=== PATIENT | male | born 2000 | race Caucasian/White ===

== ENCOUNTER 2024-06-18 02:15 | Day surgery (SDC) | payer OTHER, SELFPAY ==
[2024-04-18 14:40] VITALS: BMI 33.7
--- OUTSIDE RECORDS SUMMARY | 2024-04-30 01:14 | XMS_ITS | Data Portability ---
[facility] Organization [facility] [address] [place] [address] Care Team Providers Care Shirt Folder Name Role Phone MARIEL ESPAÑA Primary Care Provider Unavailab le Assessment No assessment recorded. Plan of Treatment Reminders Order Date Submit Date Provider Last Modified By Organization Details Last Modified Time Details Appointments ANY 15 2024 02:00P M ABRAHAM Raymundo Not available Not available Not available Lab TSH + free T4, serum 2024 025 [facility], [address] [place] [address], [id number], 04/23/2024 15:20:09 lipid panel, serum 2024 025 [facility]arterma [facility], [address] [place] [address], [id number], 04/23/2024 15:20:09 CMP, serum or plasma 2024 025 tcarterma [facility], [address] [place] [address], [id number], 04/23/2024 15:20:09 vitamin B12 + folate, serum or blood 2024 025 [facility]arterma [facility], [address] [place] [address], [id number], 04/23/2024 15:20:09 CBC w/ auto diff 2024 025 [facility]carterma [facility], [address] [place] [address], [id number], 04/23/2024 15:20:08 iron + TIBC + ferritin, serum 2024 025 [facility]arterma [facility], [address] [facility] [address], [place], [address], 04/23/2024 15:20:09 HbA1c (hemoglob in A1c), blood 2024 025 [facility]arterma [facility], [address] [facility] [address], [place], [address], 04/23/2024 15:20:09 Referral None recorded. Procedures diagnosti c colonosco py (PROC) - Soonest possible. new young patient, onset occult blood in stool August 2023. [address] [facility], [address], [address], [place], [address], 03/26/2024 15:15:59 Surgeries None recorded. Imaging None recorded. Medication Orders [facility]ra m 20 mg [facility], [address], [place], [address], 02/20/2024 11:12:57 Patient TargetsNo targets recorded. Patient Instructions Encounter Date Encounter Id Patient Instructions Last Modified By Organization Details Last Modified Time 02/20/2024 [id number] A healthy lifestyle: care instructions [email or web address] Not available 02/20/2024 11:12:48 Reason for Referral None Reported. Problems Name Problem SNOMED Code Status Onset Date Resolution Date Notes Provider Name and Address Organization Details Recorded Time Body mass index 30+ - obesity 130053886 Active 2024 Michael Celis MA null, [place] - [facility] 10:49:18 Obesity 128590301 Active 2024 ABRAHAM Raymundo Attn: Stephanie richards,[address] [facility], [place], [address] , [place] - [facility] 23:41:31 Generalized anxiety disorder 33804971 Active 2024 ABRAHAM Raymundo Attn: Accountderic g,[address] [facility], [place], [address], [facility] 5 23:41:52 Long-term drug therapy Active 2024 ABRAHAM Raymundo Attn: Accountderic g,[address] [facility], [place], [address], [facility] 5 23:41:53 Positive screening for depression on PHQ-9 (Patient Health Questionnai re 9) 2009787825528 00 Active 2024 ABRAHAM Raymundo Attn: Accountderic g,[address] [facility], [place], [address], [facility] 23:42:17 Problem Notes None recorded. Medical Equipment None Reported. Allergies Allergen ID Allergen Name Allergen Category Reaction Reaction Severity Criticality Documentation Date Start Date Code Code System Note Provider Name and Address Organization Details Recorded Time 884150 lactose food,medi cation Not available Not available Not available 02/20/2024 6211 RxNorm Not Available Not Available Not Available Medications Name Sig Start Date Stop Date Status Note LastModified by Organization Details LastModified Time citalopram 20 mg tablet TAKE 1 TABLET BY MOUTH ONCE DAILY active Not Available Not Available No t Available Vitals Date Recorded Body weight Body mass index (BMI) Body height Oxygen saturation Oxygen saturation in Arterial blood by Pulse oximetry Heart rate Systolic blood pressure Diastolic blood pressure Provider Name and Address Organization Details Last Updated DateTime 815448. 47 g 35.6 kg/m2 170.18 cm 98 % 98 % 96 /min 126 mm[Hg] 82 mm[Hg] Michael Celis MA [facility] 10:50:58 Date Recorded Respiratory rate Systolic blood pressure Diastolic blood pressure Provider Name and Address Organization Details Last Updated DateTime 02/20/2024 16 /min 120 mm[Hg] 82 mm[Hg] ABRAHAM Raymundo Attn: Accounting, [address] [facility], [place], [address], [facility] 02/20/2024 11:14:27 Social History Question Answer Notes LastModified by Organizat ion Details LastModified Time Tobacco Smoking Status Never Smoker Michael Celis MA [facility], [place] - [facility] 02/20/2024 10:48:18 What Is Your Level Of Alcohol Consumption? None Information not available 02/20/2024 Are You Blind Or Do You Have Difficulty Seeing? No Glasses Information n ot available 02/20/2024 What Is Your Level Of Caffeine Consumption? Heavy Information not available 02/20/2024 In The 14 Days Before Symptom Onset, Have You Had Close Contact With A Laboratory-confirm ed COVID-19 While That Case Was Ill? No Information n ot available 02/20/2024 In The 14 Days Before Symptom Onset, Have You Had Close Contact With A Person Who Is Under Investigation For COVID-19 While That Person Was Ill? No Information not available 02/20/2024 Have You Been To An Area Known To Be High Risk For COVID-19? No Information not available 02/20/2024 Are You Currently Employed? Yes Information not available 02/20/2024 Are You Deaf Or Do You Have Serious Difficulty Hearing? No Information not available 02/20/2024 What Type Of Diet Are You Following? REGULAR Information n ot available 02/20/2024 Are There Any Guns Present In Your Home? No Information not available 02/20/2024 What Was The Date Of Your Most Recent Tobacco Screening? 02/20/2024 Information not available 02/20/2024 Do You Use Your Seat Belt Or Car Seat Routinely? Yes Information not available 02/20/2024 Do You Have Smoke And Carbon Monoxide Detectors In Your Home? Yes Information not available 02/20/2024 Do You Use Any Illicit Or Recreational Drugs? No Information not available 02/20/2024 Do You Use Sunscreen Routinely? No Information not available 02/20/2024 Has Tobacco Cessation Counseling Been Provided? No Information not available 02/20/2024 Do You Or Have You Ever Used Any Other Forms Of Tobacco Or Nicotine? No Information not available 02/20/2024 Sex: Male Functional Status Question Answer Note LastModified by Organization D etails LastModified Time Are you able to care for yourself? Yes Information n ot available 02/20/2024 What is your exercise level? None Information not available 02/20/2024 Mental Status None recorded. Family History Relationship Description Onset Age of this Age Resolved Age Notes LastModified by Organization Details LastModified Time Mother Asthma [email or web address] Not available 02/20/2024 14:09:59 Medical History Condition Response Coronary Artery Disease N Other N Atrial Fibrillation N High Blood Pressure N Thyroid Problems N Kidney or Bladder Problems N Depression N COPD N Blood Clots N GI Problems N Have you had a mammogram in the last yea r? N Skin Problems N Anemia N Heart Attack (SC) N Diabetes N Anxiety Disorder Y Muscle, Joint, or Bone Problems N Seizures/Epilepsy N Have you had a colonoscopy in the last 1 0 years? N Acid Reflux (GERD) N Cancer N Stroke N Allergies N Asthma Y Have you had a PSA blood test in the las t year? N High Cholesterol N Hepatitis N Liver Disease N Headaches N Osteoporosis N Heart Failure N Immunizations Vaccine Type Date Status Note Provider Nam e and Address Organization Details Recorded Time COVID-19, mRNA, LNP-S, PF, 30 mcg/0.3 mL dose 1 completed Michael Celis MA null, [place] - [facility] 02/20/2024 10:48:23 COVID-19, mRNA, LNP-S, PF, 30 mcg/0.3 mL dose 1 completed Michael Celis [place], [place] [facility] 02/20/2024 10:48:23 Tdap 5 completed Michael Celis [place], [place] [facility] 02/20/2024 10:48:23 varicella 5 completed Michael Celis [place], [place] [facility] 02/20/2024 10:48:23 Influenza, split virus, trivalent, PF 3 completed Michael Celis [place], [place] [facility] 02/20/2024 10:48:23 meningococcal MCV4P 5 completed Michael Celis MA [facility], [place] - [facility] 02/20/2024 10:48:23 Past Encounters Encounter ID Performer Location Encounter Start Date Encounter Closed Date Diagnosis/Indication Diagnosis SNOMED-CT Code Diagnosis ICD10 Code Diagnosis Note [id number] ABRAHAM Raymundo [facility] [place] [address] [place] [address] 02/20/2024 10:22:24 02/20/2024 12:05:14 Body mass index 30+ - obesity 477490638 Z68.35 BMI is 35.6 Obesity 710230749 E66.9 discussed healthy diet, exercise, controllin g carbohydra jay and added sugars in the diet Adult heal th examination 533117700 Z00.01 Annual wellness exam completed. Follow-up April 02 Occult blo od detected in feces 85329852 R19.5 Refer for diagnostic colonoscop y check CBC and iron studies Cholesterol screening 27 8658744 Z13.220 Fasting lipids due Diabetes m ellitus screening 948405135 Z13.1 A1c screening due Thyroid di sorder screening 237967137 Z13.29 Routine thyroid function testing ordered Generalize d anxiety disorder 97879735 F41.1 Restart citalopram 20 mg daily for the 1st week take a half a tablet Long-term drug therapy 782569597 Z79.891 CMP and B12 ordered Positive s creening for depression on PHQ-9 (Patient Health Questionnaire 9) 4669823764 40079 Z13.31 Patient scored a 15 on screening today. SSRI therapy has been restarted Health Concerns Section Related Observation LastModified by Organization Detai ls LastModified Time None Recorded Concern Status LastModified by Organization Details LastModified Time None Recorded Advance Directives Directive None Recorded Payers Encounter Date Sequence Insurance Name Policy Number Policy Baugh Covered Member ID Baugh Member ID Guarantor Name 02/20/2024 1 [facility] [id number] Gerald Hernadez [id number] Kory Hernadez Notes Date Note Type Note Provider Name and Address Organization Details Recorded Time 02/20/2024 text/html Anxiety/Depressi on Reported bypatient.Quality: symptoms worse in the evening;symptoms worse during the day;increased anxiety Severity:denies suicidal ideations; able to maintain relationships; does not interfere with activities of daily living Duration:frequent; symptoms lasting over 2 weeks Onset/Timing:still present Context:no major life stressors Associated Symptoms:denies homicidal ideations; no significant weight gain; no significant weight loss;anxiety with excessive sweating ABRAHAM Raymundo Attn: Accounting[address] [place], [address], [facility] 03/07/2024 23:42:46
--- NOTE | 2024-06-04 14:48 | PC.NURSE ---
patient states no new medical history since last PAT phone call on 04/18/24.
--- OUTSIDE RECORDS SUMMARY | 2024-06-18 02:21 | XMS_ITS | Data Portability ---
Author Organization [facility] [place] Address [address] [facility] [place] [address] Care Team Providers Care Wood Engraver Name Role Phone MARIEL ESPAÑA Primary Care Provider Unavailab le Assessment Encounter Date Assessment Date Assessment LastModified by Organization Details LastModified Time 05/14/2024 05/14/2024 pt needs labs ordered again. Not available 05/14/2024 15:38:27 Plan of Treatment Reminders Order Date Submit Date Provider Last Modified By Organization Details Last Modified Time Details Appointments ANY 15 2024 02:15P M ABRAHAM Raymundo Not available Not available Not available Lab TSH + free T4, serum 2024 025 [email or web address] [facility], [address], [address], 06/04/2024 13:51:18 lipid panel, serum 2024 025 [email or web address] [facility], [address] [place] [address] [place], [address], 06/04/2024 13:51:19 CMP, serum or plasma 2024 025 [email or web address] [facility], 102 [facility], [place], [address], 06/04/2024 13:51:19 vitamin B12 + folate, serum or blood 2024 025 [email or web address] [facility], 102 [facility], [place], [address], 06/04/2024 13:51:19 CBC w/ auto diff 2024 025 [email or web address] [facility], [address] [facility], [facility], [place], [address], 06/04/2024 13:51:18 iron + TIBC + ferritin, serum 2024 025 [email or web address] [facility], [address] [facility], [facility], [place], [address], 06/04/2024 13:51:18 HbA1c (hemoglob in A1c), blood 2024 025 [email or web address] [facility], [address] [facility], [facility], [place], [address], 06/04/2024 13:51:19 TSH + free T4, serum 2024 025 [email or web address] [facility], [facility], [facility], [place], [address], 05/14/2024 16:56:26 lipid panel, serum 2024 025 [email or web address] [facility], [facility], [facility], [place], [address], 05/14/2024 16:56:32 CMP, serum or plasma 2024 025 [email or web address] [facility], [facility], [facility], [place], [address], 05/14/2024 16:56:38 vitamin B12 + folate, serum or blood 2024 025 [email or web address] [facility], [address] [facility], [facility], [place], [address], 05/14/2024 16:56:44 CBC w/ auto diff 2024 025 [email or web address] [facility], [address] [facility] [address] [facility], [facility], [place], [address], 05/14/2024 16:55:50 iron + TIBC + ferritin, serum 2024 025 [facility], 102 [facility], [facility], [place], [address], 05/14/2024 16:56:21 HbA1c (hemoglob in A1c), blood 2024 025 [facility], 102 [facility], [facility], [place], [address], 05/14/2024 16:56:52 Referral None recorded. Procedures diagnosti c colonosco py (PROC) - Soonest possible. new young patient, onset occult blood in stool August 2023. [address] [facility], [address], [address], [place], [address], 06/13/2024 12:37:38 Surgeries None recorded. Imaging None recorded. Medication Orders citalopra m 20 mg tablet 2024 025 [facility], [place], [address], 05/14/2024 15:37:35 citalopra m 20 mg tablet 2024 025 [facility], [place], [address], 05/14/2024 15:14:41 Patient TargetsNo targets recorded. Patient Instructions Encounter Date Encounter Id Patient Instructions Last Modified By Organization Details Last Modified Time 02/20/2024 [id number] A healthy lifestyle: care instructions Not available 02/20/2024 11:12:48 05/14/2024 [id number] A healthy lifestyle: care instructions Not available 05/14/2024 15:37:16 Reason for Referral None Reported. Problems Name Problem SNOMED Code Status Onset Date Resolution Date Notes Provider Name and Address Organization Details Recorded Time Body mass index 30+ - obesity 076982156 Active 2024 Michael Celis MA null, [place] - [facility] 5 10:49:18 Obesity 223733093 Active 2024 ABRAHAM Raymundo Attn: Stephanie richards,[address] [facility], [place], [address], [place] [facility] 5 23:41:31 Generalized anxiety disorder 72300387 Active 2024 ABRAHAM Raymundo Attn: Accountin g,[address] [facility], [place], [address], [place] [facility] 5 23:41:52 Long-term drug therapy Active 2024 ABRAHAM Raymundo Attn: Accountin g,[address] [facility], [place], [address], [place] - [facility] 5 23:41:53 Positive screening for depression on PHQ-9 (Patient Health Questionnai re 9) 0684033159021 00 Active 2024 ABRAHAM Raymundo Attn: Accountin g,[address] [facility], [place], [address], [place] - [facility] 5 23:42:17 Problem Notes None recorded. Medical Equipment None Reported. Allergies Allergen ID Allergen Name Allergen Category Reaction Reaction Severity Criticality Documentation Date Start Date Code Code System Note Provider Name and Address Organization Details Recorded Time 108398 lactose food,medi cation Not available Not available Not available 02/20/2024 6211 RxNorm Michael Celis MA null, [place] - [facility] 5 10:47:07 Medications Name Sig Start Date Stop Date Status Note LastModified by Organization Details LastModified Time citalopram 20 mg tablet Take 1 tablet every day by oral route. 025 active Not Available Not Available Not Avai lable Vitals Date Recorded Body weight Body mass index (BMI) Body height Oxygen saturation Oxygen saturation in Arterial blood by Pulse oximetry Heart rate Systolic blood pressure Diastolic blood pressure Provider Name and Address Organization Details Last Updated DateTime 5 310353. 47 g 35.6 kg/m2 170.18 cm 98 % 98 % 96 /min 126 mm[Hg] 82 mm[Hg] Michael Celis MA [facility] 10:50:58 Date Recorded Respiratory rate Systolic blood pressure Diastolic blood pressure Provider Name and Address Organization Details Last Updated DateTime 02/20/2024 16 /min 120 mm[Hg] 82 mm[Hg] ABRAHAM Raymundo Attn: Accounting, [address] [place], [address], [facility] 02/20/2024 11:14:27 Date Recorded Body height Body mass index (BMI) Body weight Oxygen saturation Oxygen saturation in Arterial blood by Pulse oximetry Heart rate Systolic blood pressure Diastolic blood pressure Provider Name and Address Organization Details Last Updated DateTime 170.18 cm 34.5 kg/m2 41810.3 2 g 98 % 98 % 86 /min 122 mm[Hg] 80 mm[Hg] Michael Celis MA [facility] 15:16:27 Date Recorded Respiratory rate Systolic blood pressure Diastolic blood pressure Provider Name and Address Organization Details Last Updated DateTime 05/14/2024 16 /min 128 mm[Hg] 80 mm[Hg] ABRAHAM Raymundo Attn: Accounting, [address] [place], [address] 05/14/2024 15:36:23 Social History Question Answer Notes LastModified by Organizat ion Details LastModified Time Tobacco Smoking Status Never Smoker Michael Celis MA null, [facility] 02/20/2024 10:48:18 Are You Blind Or Do You Have [...] No Information not available 02/20/2024 Are You Deaf Or Do You Have Serious Difficulty Hearing? No Information not available 02/20/2024 What Type Of Diet Are You Following? REGULAR Information n ot available 02/20/2024 Are There Any Guns Present In Your Home? No Information not available 02/20/2024 What Was The Date Of Your Most Recent Tobacco Screening? 05/14/2024 Information not available 05/14/2024 Do You Use Your Seat Belt Or Car Seat Routinely? Yes Information not available 02/20/2024 Do You Have Smoke And Carbon Monoxide Detectors In Your Home? Yes Information not available 02/20/2024 Do You Use Sunscreen Routinely? No Information not available 02/20/2024 Has Tobacco Cessation Counseling Been Provided? No Information not available 02/20/2024 Sex: Male Functional Status Question Answer Note LastModified by [employer] ion Details LastModified Time Do you use any illicit or recreational drugs? No Information not available 02/20/2024 Do you or have you ever used any other forms of tobacco or nicotine? No Information not available 02/20/2024 What is your level of alcohol consumption? None Information not available 02/20/2024 Are you currently employed? Yes Information not available 02/20/2024 Are you able to care for yourself? Yes Information not available 02/20/2024 What is your exercise level? [...] Problems N Kidney or Bladder Problems N GI Problems N Depression N COPD N Blood Clots N Have you had a mammogram in the last yea r? N Skin Problems N Anemia N Heart Attack (ID) N Diabetes N Anxiety Disorder Y Muscle, Joint, or Bone Problems N Seizures/Epilepsy N Have you had a colonoscopy in the last 1 0 years? N Acid Reflux (GERD) N Cancer N Stroke N Asthma Y Allergies N Have you had a PSA blood test in the las t year? N High Cholesterol N Hepatitis N Liver Disease N Headaches N Osteoporosis N Heart Failure N Immunizations Vaccine Type Date Status Note Provider Nam e and Address Organization Details Recorded Time COVID-19, mRNA, LNP-S, PF, 30 mcg/0.3 mL dose 1 completed JOHNNA Chacon, [place] - [facility] 02/20/2024 10:48:23 COVID-19, mRNA, LNP-S, PF, 30 mcg/0.3 mL dose 1 completed JOHNNA [place], [place] [facility] 02/20/2024 10:48:23 Tdap 5 completed JOHNNA [place], [place] [facility] 02/20/2024 10:48:23 varicella 5 completed JOHNNA [place] [facility] 02/20/2024 10:48:23 Influenza, split virus, trivalent, PF 3 completed JOHNNA [place] [facility] 02/20/2024 10:48:23 meningococcal MCV4P 5 completed JOHNNA [place], [place] [facility] 02/20/2024 10:48:23 Past Encounters Encounter ID Performer Location Encounter Start Date Encounter Closed Date Diagnosis/Indication Diagnosis SNOMED-CT Code Diagnosis ICD10 Code Diagnosis Note [id number] Mauricio Edmonds MD [facility] [place] [address] [place] [address] 02/20/2024 10:22:24 02/20/2024 12:05:14 Body mass index 30+ - obesity 689434121 Z68.35 BMI is 35.6 Obesity 836661024 E66.9 discussed healthy diet, exercise, controllin g carbohydra jay and added sugars in the diet Adult heal th examination 296973626 Z00.01 Annual wellness exam completed. Follow-up April 02 Occult blo od detected in feces 52567393 R19.5 Refer for diagnostic colonoscop y check CBC and iron studies Cholesterol screening 27 2232620 Z13.220 Fasting lipids due Diabetes m ellitus screening 661276882 Z13.1 A1c screening due Thyroid di sorder screening 333701415 Z13.29 Routine thyroid function testing ordered Generalize d anxiety disorder 66112917 F41.1 Restart citalopram 20 mg daily for the 1st week take a half a tablet Long-term drug therapy 632514869 Z79.891 CMP and B12 ordered Positive s creening for depression on PHQ-9 (Patient Health Questionnaire 9) 2845925678 09495 Z13.31 Patient scored a 15 on screening today. SSRI therapy has been restarted [id number] Mauricio Edmonds MD [facility] [place] [address] [place] [address] 05/14/2024 14:49:14 05/14/2024 15:57:12 Generalized anxiety disorder 36251178 F41.1 Refill on citalopram 20 mg daily. Medication is helpful patient is pleased with efficacy. No complaints or concerns. Follow up in 6 months. Long-term drug therapy 708230823 Z79.899 Labs are ordered again to complete fasting Body mass index 30+ - obesity 546408712 Z68.34 BMI is 34.5 Obesity 897638332 E66.9 discussed healthy diet, exercise, controllin g carbohydra jay and added sugars in the diet Occult blo od detected in feces 39319073 R19.5 Refer for diagnostic colonoscop y check CBC and iron studies. had to reschedule scope due to illness Cholesterol screening 27 0596824 Z13.220 Fasting lipids due Diabetes m ellitus screening 839939286 Z13.1 A1c screening due Thyroid di sorder screening 764874445 Z13.29 Routine thyroid function testing ordered Health Concerns Section Related Observation LastModified by Organization Detai ls LastModified Time None Recorded Concern Status LastModified by Organization Details LastModified Time None Recorded Advance Directives Directive None Recorded Payers Encounter Date Sequence Insurance Name Policy Number Policy Baugh Covered Member ID Baugh Member ID Guarantor Name 02/20/2024 1 [facility] [id number] Gerald Hernadez [id number] Kory Hernadez 05/14/2024 1 [facility] [id number] Gerald Hernadez [id number] Kory Hernadez Notes Date Note Type Note [...] excessive sweating ABRAHAM Raymundo Attn: Accounting,[address] [place], [address], [facility] 03/07/2024 23:42:46 05/14/2024 text/html Anxiety/Depressi on Reported bypatient.Quality: symptoms worse in the evening;symptoms worse during the day;increased anxiety Severity:denies suicidal ideations; able to maintain relationships; does not interfere with activities of daily living Duration:frequent; symptoms lasting over 2 weeks Onset/Timing:still present Context:no major life stressors Associated Symptoms:denies homicidal ideations; no significant weight gain; no significant weight loss;anxiety with excessive sweatingNotes:Rosanne ent does have improvement with the citalopram therapy and would like to continue, no complaints or concerns Patient did not complete labs that were ordered ABRAHAM Raymundo Attn: Accounting[address] [place], [address], [facility] 06/07/2024 20:39:55
[2024-06-18 12:01] VITALS: BP 132/87; PULSE 88; RESP 12; TEMP 36.1; O2SAT 100; BMI 34.9
[2024-06-18] MEDS: LACTATED RINGERS 1,000 ML 150 ML IV CONT (12:23)
--- NOTE | 2024-06-18 12:46 | P.PNAN_ITS ---
Anes - Initial Pre Proc Eval Procedure: Operation Date: 06/18/24 13:00 Proposed Procedures p Colonoscopy - Jayjay Salcedo MD Date/Time: 06/18/24 12:46 Surgeon: Jayjay Salcedo MD Pre Op Diagnosis: fecal abn Patient Data Age: 24 Gender: M Height: 1.7 m Weight: 101.2 kg Last Vital Signs Temp 36.1 C L 06/18/24 12:01 Pulse 88 06/18/24 12:01 Resp 12 06/18/24 12:01 BP 132/87 06/18/24 12:01 Pulse Ox 100 06/18/24 12:01 O2 Del Method Room Air 06/18/24 12:01 Allergies Allergy/AdvReac Type Severity Reaction Status Date / Time No Known Allergies Allergy Verified 06/18/24 11:59 Home Medications ?Medication ?Instructions ?Recorded ?Confirmed ?Type citalopram 20 mg tablet 20 mg PO DAILY 04/18/24 04/18/24 History Patient hx anesthesia problems: none Family hx anesthesia problems: none Results Review: All pre-operative results and documents have been reviewed as part of the pre- operative evaluation. [facility] Social History Social History Alcohol intake: never Substance use: never Substance use type: does not use Living arrangements: with family Spiritual care concerns: No Anes - Eval Final PreProcedure Day of Procedure 06/18/24 12:46 Patient weight: obese Heart: regular rate and rhythm Lungs: clear to auscultation Airway: Mallampati scale class II Neurological: alert and oriented Last oral intake: >/= 8 hours ASA classification: II Emergent: no Anesthetic plan: proceed Anesthesia type and monitoring: general GIVS and standard monitoring Results Review: All pre-operative results and documents have been reviewed as part of the pre- operative evaluation. Informed Consent: The patient's anesthetic plan and its attendant risks and benefits were discussed with the patient/family/POA. Questions were solicited and answers provided to the satisfaction of the patient/family/POA.
--- NOTE | 2024-06-18 13:17 | PM.HPGS ---
History of Present Illness History of Present Illness Consent: Risks, benefits, and alternatives have been discussed and questions answered. Patient agrees to proceed with procedure. Chief complaint: fecal abn Narrative: Kory Hernadez is a 24 year old male here for first colonoscopy, noted few times blood in stool Review of Systems Review of Systems: All systems reviewed & are unremarkable except as noted in HPI and below PMFSH Past Medical History Medical History (Updated 06/18/24 @ 13:19 by Jayjay Salcedo MD) Rectal bleeding Social History Social History Alcohol intake: never Substance use: never Substance use type: does not use Living arrangements: with family Spiritual care concerns: No Meds Home Medications and Allergies Home Medications ?Medication ?Instructions ?Recorded ?Confirmed ?Type citalopram 20 mg tablet 20 mg PO DAILY 04/18/24 04/18/24 History Allergies Allergy/AdvReac Type Severity Reaction Status Date / Time No Known Allergies Allergy Verified 06/18/24 11:59 Vital Signs Vital Signs - 24 hr 06/18/24 12:01 Temperature 97 F L Pulse Rate 88 Respiratory Rate 12 Blood Pressure 132/87 Pulse Oximetry 100 Oxygen Delivery Room Air Exam Const: General: comfortable and no acute distress HENMT: Face/Nose/Sinus: Normal nares present Eyes: General: appearance normal, both eyes and all related structures Neck: Neck: no JVD Resp: Auscultation: clear to auscultation bilaterally Cardio: Rate: regular rate Rhythm: regular rhythm GI: Inspection: non-distended GI Palp: Yes Soft to palpation Skin: General skin exam: normal color Neuro: General: gait normal Speech: normal speech Extrem: General: normal to inspection Psych: Mental Status: mental status grossly normal Assessment and Plan Assessment and plan (1) Rectal bleeding: Code(s): K62.5 - Hemorrhage of anus and rectum Status: Acute Assessment and Plan: colonoscopy
[2024-06-18 13:34] VITALS: BP 107/65; PULSE 94; RESP 20; O2SAT 96
[2024-06-18 13:44] VITALS: BP 111/67; PULSE 84; RESP 16; O2SAT 96
[2024-06-18 13:54] VITALS: BP 108/68; PULSE 94; RESP 20; O2SAT 98
== END 2024-06-18 14:16 | disposition home or self-care (01) ==
PROVIDERS: PCP Physician Assistant; Referring Provider Physician Assistant; Visit Provider Internal Medicine Gastroenterology
PROC: 0DJD8ZZ Inspection of Lower Intestinal Tract, Via Natural or Artificial Opening Endoscopic (ICD-10-PCS; CPT 45378; principal; 2024-06-18 13:00)
DX: K63.5 Polyp of colon (principal); K64.8 Other hemorrhoids; E66.9 Obesity, unspecified; Z68.34 Body mass index [BMI] 34.0-34.9, adult
CPT/HCPCS: 45385; 88305; J2003; J2704; J7120